=== PATIENT | male | born 1965 | race Two or more races ===

== ENCOUNTER → 2020-01-04 | Outpatient (CLI) | payer OTHER ==
--- NOTE | 2020-01-04 08:54 | RAD ---
CT LOW DOSE LUNG SCREENING INDICATION: Hemoptysis, occupational exposure to asbestos, history of smoking. COMPARISON STUDY: None. TECHNIQUE: Unenhanced axial images were obtained through the lungs and upper abdomen using low dose technique. Coronal and sagittal multiplanar reformatted images were also obtained. PQRS compliance statement: One or more of the following individualized dose reduction techniques were utilized for this examination: 1. Automated exposure control 2. Adjustment of the mA and/or kV according to patient size 3. Use of iterative reconstruction technique FINDINGS: Lung Nodules: There are several small indeterminate pulmonary nodules with telemarketing sales representative nodules as follows: Left upper lobe solid pulmonary nodule measuring 0.7 cm (series 2 image 142) and right upper lobe subpleural solid pulmonary nodule measuring 0.4 cm (image 133). Lungs and Airways: No pulmonary mass or consolidation. Normal central airways. Pleura: Normal pleural spaces. Heart and Mediastinum: The visualized portions of the thyroid gland are normal in size and attenuation. No axillary or supraclavicular lymphadenopathy. No mediastinal, hilar or retrocrural lymphadenopathy. The heart and pericardium are within normal limits. The great vessels of the thorax are normal. Abdomen: The visualized abdominal organs demonstrate no abnormality. Bones and Soft Tissues: Degenerative changes of the spine. IMPRESSION: Several small indeterminate pulmonary nodules, largest measuring 0.7 cm. Lung-RADS Category: 3 Management Recommendation: Follow up low-dose chest CT in 6 months. Electronically signed by: Braxton Boswell MD (01/04/2020 8:51 AM) [id number]
== END | disposition home or self-care (01) ==
LOC: CT 07:52 → EDBD 08:30
PROVIDERS: ATTEND Family Medicine
DX: R91.8 Other nonspecific abnormal finding of lung field (principal); Z87.891 Personal history of nicotine dependence; Z77.090 Contact with and (suspected) exposure to asbestos
CPT/HCPCS: G0297